=== PATIENT | female | born 1950 | race Caucasian/White ===

== ENCOUNTER → 2021-05-05 | Outpatient (CLI) | payer SELFPAY | END | disposition home or self-care (01) | LOC: LAB SHORT 07:32 | DX: D48.5 Neoplasm of uncertain behavior of skin (principal) | CPT/HCPCS: 88305 ==

== ENCOUNTER → 2021-11-25 | Outpatient (CLI) | payer MEDICARE, OTHER | END | disposition home or self-care (01) | LOC: LAB SHORT 09:46 → LAB 09:46 | DX: D48.5 Neoplasm of uncertain behavior of skin (principal) | CPT/HCPCS: 88305 ==

== ENCOUNTER → 2022-06-01 | Outpatient (CLI) | payer MEDICARE, OTHER | LOC: LAB SHORT 15:18 → PLD 15:18 | DX: L57.0 Actinic keratosis (principal); B88.0 Other acariasis; L57.8 Other skin changes due to chronic exposure to nonionizing radiation | CPT/HCPCS: 88305 ==

== ENCOUNTER → 2023-02-19 | Outpatient (CLI) | payer MEDICARE, OTHER ==
[2023-02-20 11:58] LABS: Candida species (DNA Probe) Negative (NEGATIVE); G. vaginalis (DNA Probe) Negative (NEGATIVE); T. vaginalis (DNA Probe) Negative (NEGATIVE)
== END ==
LOC: LAB SHORT 14:25 → LAB 14:25
PROVIDERS: Physician Assistant
DX: N89.8 Other specified noninflammatory disorders of vagina (principal)
CPT/HCPCS: 87480; 87510; 87660

== ENCOUNTER → 2023-04-04 | Outpatient (CLI) | payer MEDICARE, OTHER ==
[2023-04-04 18:07] LABS: BASOPHILS ABSOLUTE AUTO 0.05 K/mm3 (0.00-0.23); BASOPHILS PERCENT AUTO 1 % (0-2); EOSINOPHILS ABSOLUTE AUTO 0.08 K/mm3 (0.00-0.68); EOSINOPHILS PERCENT AUTO 1 % (0-6); Hematocrit 43.3 % (33.0-51.0); Hemoglobin 14.8 g/dL (11.5-16.0); IMMATURE GRAN ABSOLUTE AUTO 0.04 K/mm3 (0.00-0.10); IMMATURE GRAN PERCENT AUTO 1 % (0-1); LYMPHOCYTES ABSOLUTE AUTO 1.69 K/mm3 (0.84-5.20); LYMPHOCYTES PERCENT AUTO 30 % (21-46); MONOCYTES ABSOLUTE AUTO 0.33 K/mm3 (0.16-1.47); MONOCYTES PERCENT AUTO 6 % (4-13); Mean Corpuscular HGB 28.6 pg (26.0-34.0); Mean Corpuscular HGB Conc 34.2 g/dL (31.5-36.5); Mean Corpuscular Volume 84 fL (80-100); Mean Platelet Volume 12.3 fL (9.1-12.4); NEUTROPHILS ABSOLUTE AUTO 3.37 K/mm3 (1.96-9.15); NEUTROPHILS PERCENT AUTO 61 % (41-73); Platelet Count 256 K/mm3 (150-400); RDW Coefficient Variation 11.9 % (11.7-14.2); RDW Standard Deviation 35.9 fL (35.1-46.3); Red Blood Cell Count 5.17 M/mm3 (3.80-5.20); White Blood Cell Count 5.56 K/mm3 (4.00-11.30)
== END | disposition home or self-care (01) ==
LOC: LAB SHORT 17:09 → LAB 17:09
PROVIDERS: Physician Assistant
DX: R53.81 Other malaise (principal); R53.83 Other fatigue; R06.02 Shortness of breath; R00.2 Palpitations
CPT/HCPCS: 84443; 85025

== ENCOUNTER → 2023-04-13 | Outpatient (CLI) | payer MEDICARE, OTHER | LOC: LAB SHORT 09:02 → LAB 09:02 | DX: D48.5 Neoplasm of uncertain behavior of skin (principal) | CPT/HCPCS: 88305 ==

== ENCOUNTER → 2024-07-20 | Outpatient (CLI) | payer MEDICARE, OTHER ==
[~2024-07-20] MED LIST: ALEVAZOL56.7 G1 TOP; ASSURE PLATINU1 EAC2 MC; BUSPIRONE HCL10 M6 PO; ESCI10 PO; FOSAMAX70 MG PO; TIZANIDINE HCL213 PO; TRAZ100 PO; Triamcinolone A15 G2 TOP; Ventolin/Prove6.7 GM INH
[2024-07-20 17:56] LABS: Bacterial Vaginosis PCR Negative (NEGATIVE); Candida Group, PCR NOT DETECTED (NOT DETECT); Candida glabrata-krusei, PCR NOT DETECTED (NOT DETECT)
== END ==
LOC: LAB SHORT 15:34 → LAB 15:34
PROVIDERS: Physician Assistant
DX: B37.2 Candidiasis of skin and nail (principal)
CPT/HCPCS: 87481; 87661; 87801

== ENCOUNTER → 2024-09-28 | Outpatient (CLI) | payer MEDICARE, OTHER ==
[2024-09-28 19:32] LABS: Creatinine, Urine Random 16.9 mg/dL (27.00-270.00); Microalb/Creat Ratio UR, Rand 33.195 mg/g (0.000-30.000); Microalbumin, Random Urine 5.61 mg/L (0.000-20.000)
== END ==
LOC: LAB SHORT 17:24 → LAB 17:24
PROVIDERS: Physician Assistant
DX: E11.59 Type 2 diabetes mellitus with other circulatory complications (principal); E11.69 Type 2 diabetes mellitus with other specified complication
CPT/HCPCS: 82043; 82570

== ENCOUNTER → 2025-01-23 | Outpatient (CLI) | payer MEDICARE, OTHER ==
[2025-01-24 15:03] LABS: Bacterial Vaginosis PCR Negative (NEGATIVE); Candida Group, PCR NOT DETECTED (NOT DETECT); Candida glabrata-krusei, PCR NOT DETECTED (NOT DETECT)
== END | disposition home or self-care (01) ==
LOC: LAB 16:31 → LAB SHORT 16:31
PROVIDERS: Obstetrics & Gynecology
DX: N76.0 Acute vaginitis (principal)
CPT/HCPCS: 81515

== ENCOUNTER 2025-06-26 11:13 | Day surgery (SDC) | payer MEDICARE, OTHER ==
[~2025-06-26] VITALS: Ht 165.1 cm; Wt 86.5 kg
[~2025-06-26 11:13] MED LIST changes: +Balanced Salt Epinephrine Irrigation Solution 500 mL IR SCH; +Moxifloxacin HCL 0.5 MG/0.1 ML 0.4MLSYR RIGHTEYE SCH; +Ondansetron 4 MG SoluTab MM PRN; +PHENYLEPHRINE\\TROPICAMIDE\\TETRACAINE OPHTHALMIC DILATING SOLN RIGHTEYE PRN; +Povidone-Iodine 450 DROP/30 ML Solution ONE; +Povidone-Iodine 450 DROP/30 ML Solution RIGHTEYE SCH; +Tetracaine HCl/Pf 0.5% Opth Soln 4 ml ONE
--- NOTE | 2025-06-26 11:50 | NUR ---
06/26/25 1150 Anna Miranda ANXIETY LEVEL 5/10 PRIOR TO GIVING VALIUM 10MG PO IN PREOP PRIOR TO PROCEDURE.
[2025-06-26] MEDS ORDERED: OMEP20ER PO (12:00)
[2025-06-26] MEDS ORDERED: ESTRADIOL42.5 GM VG (12:00)
--- NOTE | 2025-06-26 12:33 | NUR ---
06/26/25 1233 Caty Brito 1230 BP:126/53 HR:70 O2:97% RESP:16
[2025-06-26 12:50] VITALS: BP 128/62
== END 2025-06-26 13:02 | disposition home or self-care (01) ==
LOC: ORSCSDS 11:13
PROVIDERS: Student in an Organized Health Care Education/Training Program
PROC: 08RJ3JZ Replacement of Right Lens with Synthetic Substitute, Percutaneous Approach (ICD-10-PCS; principal; 2025-06-26 13:00)
DX: E11.36 Type 2 diabetes mellitus with diabetic cataract (principal); H25.813 Combined forms of age-related cataract, bilateral; F32.A Depression, unspecified; F41.9 Anxiety disorder, unspecified; Z79.899 Other long term (current) drug therapy; Z87.891 Personal history of nicotine dependence
CPT/HCPCS: A9270; V2632

== ENCOUNTER 2025-07-19 18:19 | Emergency (ER) | payer MEDICARE, OTHER ==
[~2025-07-19] VITALS: Ht 162.6 cm; Wt 87.1 kg
[~2025-07-19 18:19] MED LIST changes: -Balanced Salt Epinephrine Irrigation Solution 500 mL IR SCH; +ESTRADIOL42.5 GM VG; -Moxifloxacin HCL 0.5 MG/0.1 ML 0.4MLSYR RIGHTEYE SCH; +OMEP20ER PO; -Ondansetron 4 MG SoluTab MM PRN; -PHENYLEPHRINE\\TROPICAMIDE\\TETRACAINE OPHTHALMIC DILATING SOLN RIGHTEYE PRN; -Povidone-Iodine 450 DROP/30 ML Solution ONE; -Povidone-Iodine 450 DROP/30 ML Solution RIGHTEYE SCH; -Tetracaine HCl/Pf 0.5% Opth Soln 4 ml ONE
[2025-07-19 18:50] VITALS: BP 147/93
[2025-07-19] MEDS ORDERED: Ketorolac Tromethamine 15mg Vial IM ONE (21:45)
[2025-07-19] MEDS ORDERED: FAMO20 PO ×2 (23:53→23:54)
[2025-07-19] MEDS ORDERED: IBU600 M1 PO ×2 (23:53→23:54)
== END 2025-07-19 23:08 | disposition home or self-care (01) ==
LOC: ER 18:19
DX: S83.91XA Sprain of unspecified site of right knee, initial encounter (principal); M17.0 Bilateral primary osteoarthritis of knee; W18.30XA Fall on same level, unspecified, initial encounter; Z79.899 Other long term (current) drug therapy; Z91.048 Other nonmedicinal substance allergy status; Z88.8 Allergy status to other drugs, medicaments and biological substances
CPT/HCPCS: 73560-RT; 73562-LT; 73660; 96372; 99283-25; J1885